=== PATIENT | female | born 1995 | race Caucasian/White ===

== ENCOUNTER 2016-09-19 12:45 | Emergency (ER) | payer BC, MEDICAID ==
[2016-09-19 13:12] VITALS: BP 104/79; PULSE 78; RESP 18; TEMP 99; O2SAT 98
[2016-09-19] MEDS ORDERED: NS 1,000 ML IV ONE (14:33)
[2016-09-19] MEDS ORDERED: ONDANSETRON 4 MG/2 ML VIAL IVP ONE (14:34)
[2016-09-19] MEDS ORDERED: DICYCLOMINE 10 MG CAP PO ONE (14:34)
--- NOTE | 2016-09-19 14:35 | UCPHY ---
H & P Time Seen by Provider: 09/19/16 14:02 Patient Type: Established HPI/ROS: CHIEF COMPLAINT: Diarrhea, abdominal cramping HISTORY OF PRESENT ILLNESS: This is a 21-year-old female who while she has had troubles with her "digestion" waxing waning abdominal pains with occasional bouts of diarrhea and constipation. She has never been evaluated nor she ever seen her family physician with the skin symptoms. Furthermore there has been no background history of bloody diarrhea with in the past few years nor this episode thereafter. Beginning about a week ago she started having diarrhea on the order of 5-10 times daily. Small amounts. Liquid too much. At no point was there any blood. With this there has been some diffuse abdominal discomfort which seemed to be cyclical in nature that she describes as if she was in labor with cyclical pains lasting 10-15 seconds several times a course of an hour. They will not quite doubled over but the planning uncomfortable. The seem to be diffuse in all 4 quadrants. There has been no shoulder pain or shoulder pain or pleuritic pain. Furthermore she is able to stand and walk well without discomfort. P: Q: R: S: T: Travel: Others: Antibiotics: Bad Food: Bad Water: Recent Surgery: REVIEW OF SYSTEMS: Constitutional: No fever, no chills. Eyes: No diplopia. ENT: No sore throat. Cardiovascular: No chest pain, no palpitations. Respiratory: No cough, shortness of breath, or wheezing. Gastrointestinal: No nausea vomiting or diarrhea. No abdominal pain. Genitourinary: No hematuria or frequency. Musculoskeletal: No back pain. Skin: No rashes. Neurological: No headache. 10 point ROS otherwise negative Smoking Status: Never smoked Physical Exam: General Appearance: Alert, no distress. Afebrile. Normal phonation. No respiratory distress. Eyes: Pupils equal and round no pallor or injection. No icterus ENT, Mouth: Mucous membranes moist. Pharynx without erythema or exudate. TM Clear. Neck: No adenopathy. Supple. No JVD. Trachea in midline. Respiratory: There are no retractions, lungs are clear to auscultation. Cardiovascular: Regular rate and rhythm. Abdomen: Soft and nontender, no masses, bowel sounds normal. Femoral pulses equal. Neurological: Ox3. No motor weakness. Sensation intact. Gait nl. Skin: Warm and dry, no rashes. Musculoskeletal: No joint swelling. Extremities: No edema. Homans sign negative. No cords. Psychiatric: Patient is oriented X 3, there is no agitation Constitutional: Initial Vital Signs Temperature (C) 37.2 C 09/19/16 13:10 Heart Rate 78 09/19/16 13:10 Respiratory Rate 18 09/19/16 13:10 Blood Pressure 104/79 09/19/16 13:10 O2 Sat (%) 98 09/19/16 13:10 O2 Delivery Mode Room Air Allergies/Adverse Reactions: No Known Allergies Allergy (Verified 09/19/16 13:09) Home Medications: Medication Instructions Recorded Bcp 06/24/16 Albuterol 09/19/16 Dicyclomine [Bentyl 10 MG (*)] 1 - 2 tab PO Q8 PRN #15 cap 09/19/16 Ondansetron Odt [Zofran Odt 4 mg 8 mg PO TID PRN #10 tab 09/19/16 (*)] Sertraline HCl 09/19/16 Medical Decision Making ED Course/Re-evaluation: An IV was established. She was given Zofran for nausea. She was unable to produce any diarrhea specimen. She was given Bentyl for her discomfort. After the IV was completed I reviewed with her the clinical course as well as the expectation of the next few days. Given the fact that she has in general a longstanding problem with episodic abdominal discomfort and digestive issues I have suggested that she should be seen by a inclusion specialist. Thus the referral. In the interim she is to apply a stool specimen which he been ordered regarding the film array as well as C diff. She has essentially no risk factors for diarrheal illness of a bacterial dysentery type thereby I would forego any antibiotics pending results. She will have Zofran for nausea and Bentyl for discomfort. I review with her dietary management including avoiding caffeine and be certain to take a broad spectrum of foods avoiding too much fructose in juices. Differential Diagnosis: Differential diagnosis includes, but is not limited to: Gastroenteritis, dehydration, diverticulitis, hepatitis, cholecystitis, appendicitis, gastritis, mesenteric adenitis, food poisoning, bacterial dysentery - Data Points Medications Given: Discontinued Medications Dicyclomine HCl (Bentyl) 10 mg PO EDNOW ONE Stop: 09/19/16 14:35 Last Admin: 09/19/16 14:57 Dose: 10 mg Sodium Chloride (Ns) 1,000 mls @ 0 mls/hr IV ONCE ONE PRN Reason: Wide Open Stop: 09/19/16 14:34 Last Admin: 09/19/16 14:57 Dose: 1,000 mls Ondansetron HCl (Zofran) 8 mg IVP ONCE ONE Stop: 09/19/16 14:35 Last Admin: 09/19/16 14:57 Dose: 8 mg Departure - Departure Disposition: Home, Routine, Self-Care Clinical Impression: Diarrhea Qualifiers: Diarrhea type: unspecified type Qualified Code(s): R19.7 - Diarrhea, unspecified Condition: Good Instructions: Acute Diarrhea (ED) Additional Instructions: Even though having diarrhea is located take a regular diet. [place] diet would be best. However, it is important to avoid all caffeine as well as excessive juice intake. Bentyl for the abdominal cramps Zofran for nausea Referrals: Angela Ren MD [Primary Care Provider] - As per Instructions Austin Rosa MD, FACG [Medical Doctor] - As per Instructions Prescriptions: Dicyclomine [Bentyl 10 MG (*)] 1 - 2 tab PO Q8 PRN #15 cap PRN Reason: moderate pain Ondansetron Odt [Zofran Odt 4 mg (*)] 8 mg PO TID PRN #10 tab PRN Reason: Nausea/Vomiting, Can'T Take Po - PQRS PQRS Measurement: not applicable
== END 2016-09-19 15:32 | disposition home or self-care (01) ==
LOC: CED 12:45
DX: R19.7 Diarrhea, unspecified (principal); R10.9 Unspecified abdominal pain; R11.0 Nausea
CPT/HCPCS: 96361-PO; 96374-PO; G0463-PO; J2405